=== PATIENT | female | born 1945 | race Caucasian/White ===

== ENCOUNTER 2022-10-18 19:25 | Inpatient (IN) | payer OTHER, MEDICAID ==
[~2022-10-18] VITALS: Ht 152.4 cm; Wt 90.7 kg
[2022-10-18] MEDS ORDERED: cefTRIAXone 1,000 MG in DEXT 5% MINI-BAG PLUS 50 ML IV ONE (19:40)
[2022-10-18] MEDS ORDERED: NACL 0.9% 2,000 ML IV SCH (19:40)
[2022-10-18 19:43] VITALS: BP 129/70
[2022-10-18 20:06] LABS: BASOPHILS % (AUTO) 0.3 % (0.0-2.0); EOSINOPHILS # (AUTO) 0.2 K/uL (0-0.4); EOSINOPHILS % (AUTO) 1.7 % (0.0-4.0); HEMATOCRIT 34.6 % (36-48); HEMOGLOBIN 11.8 g/dL (12.0-16.0); LYMPHOCYTES # (AUTO) 1.4 K/uL (2.5-16.5); LYMPHOCYTES % (AUTO) 15.8 % (20.5-51.1); MEAN CORPUSCULAR HEMOGLOBIN 31 pg (27-31); MEAN CORPUSCULAR HGB CONC 34 g/dL (33-37); MEAN CORPUSCULAR VOLUME 90.8 fL (80-94); MONOCYTES # (AUTO) 1.2 K/uL (0.8-1.0); MONOCYTES % (AUTO) 13.5 % (1.7-9.3); NEUTROPHILS # (AUTO) 6.1 K/uL (1.8-7.7); NEUTROPHILS % (AUTO) 68.7 % (42.2-75.2); PLATELET COUNT (AUTO) 272 K/uL (140-450); RED BLOOD CELL COUNT(AUTO) 3.81 MIL/uL (4.20-5.40); RED CELL DISTRIBUTION WIDTH 14.4 % (11.6-13.7); WHITE BLOOD COUNT (AUTO) 8.8 K/uL (4.8-10.8)
[2022-10-18 20:22] LABS: ALBUMIN 3.2 g/dL (3.4-5.0); ANION GAP 11.8 (8-16); ASPARTATE AMINOTRANSFERASE 13 U/L (15-37); CARBON DIOXIDE 30.7 mmol/L (21-32); CHLORIDE 100 mmol/L (98-107); CREATININE 0.6 mg/dL (0.6-1.3); GLUCOSE 118 mg/dL (74-106); POTASSIUM 3.5 mmol/L (3.5-5.1); SODIUM SERUM 139 mmol/L (136-145); TOTAL BILIRUBIN 0.5 mg/dL (0.0-1.0); UREA NITROGEN, BLOOD 15 mg/dL (7-18)
[2022-10-18] MEDS ORDERED: cefTRIAXone 1,000 MG VIAL ONE (20:50)
[2022-10-18 20:57] LABS: APPEARANCE,URINE CLEAR (CLEAR); BILIRUBIN,URINE NEGATIVE (NEGATIVE); BLOOD, URINE 1+ (NEGATIVE); COLOR,URINE YELLOW (YELLOW); LEUKOCYTE ESTERASE ,URINE 2+ (NEGATIVE); NITRITE, URINE POSITIVE (NEGATIVE); UGLUCOSE NEGATIVE (NEGATIVE)
[2022-10-18 21:09] LABS: OTHER CASTS, URINE None Seen /LPF (None Seen)
[2022-10-18] MEDS ORDERED: NACL 0.9% 1,000 ML IV SCH (23:00)
[2022-10-19 00:43] VITALS: BP 129/70
== END 2022-10-19 00:43 | disposition left against medical advice (07) | DRG 689 ==
LOC: MED 19:25 → MTU 22:52 → UNDODEPER 10-19 06:17
PROVIDERS: ADMIT Family Medicine; ATTEND Family Medicine
DX: N30.01 Acute cystitis with hematuria (principal); G93.41 Metabolic encephalopathy; E11.9 Type 2 diabetes mellitus without complications; Z20.822 Contact with and (suspected) exposure to COVID-19; E78.5 Hyperlipidemia, unspecified; I10 Essential (primary) hypertension
CPT/HCPCS: 36415; 70450; 71045; 80053; 81001; 82550; 83605; 83880; 84484; 85025; 87040; 87086; 93005; 96365; 99285; J0696; Q0092